=== PATIENT | female | born 1995 | race African-American/Black ===

== ENCOUNTER 2021-03-25 20:48 | Emergency (ER) | payer OTHER ==
[~2021-03-25] VITALS: Ht 167.6 cm; Wt 49.0 kg
[2021-03-25 20:54] VITALS: BP 124/84
[2021-03-25] MEDS ORDERED: ACETAMINOPHEN (21:00)
[2021-03-25] MEDS ORDERED: METHOCARBAMOL500 M2 PO (22:46)
== END 2021-03-25 22:50 | disposition home or self-care (01) ==
LOC: ER 20:48
PROVIDERS: Nurse Practitioner Family
DX: J10.1 Influenza due to other identified influenza virus with other respiratory manifestations (principal); Z20.822 Contact with and (suspected) exposure to COVID-19; F12.90 Cannabis use, unspecified, uncomplicated